=== PATIENT | male | born 1950 | race Caucasian/White ===

== ENCOUNTER 2016-07-15 | Emergency (ER) | payer MEDICARE, OTHER | END 2016-07-15 16:43 | disposition home or self-care (01) ==

== ENCOUNTER 2016-09-18 11:37 | Emergency (ER) | payer MEDICARE, OTHER | END 2016-09-18 12:56 | disposition home or self-care (01) | DX: J01.00 Acute maxillary sinusitis, unspecified (principal); I10 Essential (primary) hypertension; G47.30 Sleep apnea, unspecified; E11.9 Type 2 diabetes mellitus without complications; Z79.4 Long term (current) use of insulin; K21.9 Gastro-esophageal reflux disease without esophagitis; K75.9 Inflammatory liver disease, unspecified; Z87.442 Personal history of urinary calculi; M19.90 Unspecified osteoarthritis, unspecified site; M10.9 Gout, unspecified; Z87.891 Personal history of nicotine dependence ==

== ENCOUNTER 2017-04-27 11:08 | Outpatient (CLI) | payer MEDICARE, OTHER | END 2017-04-27 11:09 | disposition home or self-care (01) | LOC: SC 11:08 | PROVIDERS: ATTEND Internal Medicine Pulmonary Disease | DX: G47.33 Obstructive sleep apnea (adult) (pediatric) (principal) | CPT/HCPCS: 99213; G0463; 99212 ==

== ENCOUNTER 2018-03-17 09:51 | Outpatient (CLI) | payer MEDICARE, OTHER | END 2018-03-17 09:52 | disposition home or self-care (01) | LOC: SC 09:51 | PROVIDERS: ATTEND Nurse Practitioner Family | DX: G47.33 Obstructive sleep apnea (adult) (pediatric) (principal) | CPT/HCPCS: 99215; G0463; 99212 ==

== ENCOUNTER 2018-06-14 18:07 | Emergency (ER) | payer MEDICARE, OTHER ==
[2018-06-14 18:14] VITALS: BP 155/83
--- NOTE | 2018-06-14 18:29 | ED Physician Documentation ---
PD HPI UPPER EXT INJURY - Stated complaint Stated Complaint: R SHOULDER PX - Chief complaint Chief Complaint: Trauma Ext - History obtained from History obtained from: Patient - History of Present Illness Location: Right, Shoulder Type of injury: No: Fall, Twist Where injury occurred: Home Timing - onset: How many days ago (has had pain right shoulder the past 3 days, without injury. Pain lateral shoulder. Hurts with ROM, particularly abduction. He told about it today, and he says she was concerned about it being heart related and had him come for evaluation.) Timing - duration: Days Timing - details: Abrupt onset (awoke with it few days ago. Better with some use, but hurts with abduction and rotational movement. No chest pain.), Waxing and waning Worsened by: Moving, Palpating (lateral shoulder) Associated symptoms: No: Weakness, Numbness, Tingling Similar symptoms before: Has not had sx before Recently seen: Not recently seen Review of Systems Constitutional: denies: Fever Nose: denies: Rhinorrhea / runny nose, Congestion Throat: denies: Sore throat Cardiac: denies: Chest pain / pressure, Palpitations Respiratory: denies: Dyspnea, Cough GI: denies: Nausea, Vomiting Skin: denies: Rash, Lesions Musculoskeletal: denies: Neck pain, Back pain Neurologic: denies: Focal weakness, Numbness PD PAST MEDICAL HISTORY - Past Medical History Cardiovascular: Hypertension Respiratory: Sleep apnea Endocrine/Autoimmune: Type 2 diabetes GI: GERD, Hepatitis : Kidney stones HEENT: None Psych: Depression Musculoskeletal: Osteoarthritis, Gout, Chronic back pain Derm: Rosacea - Past Surgical History Past Surgical History: Yes General: Colonoscopy HEENT: Other Derm: Other - Present Medications Home Medications: Ambulatory Orders Medication Instructions Recorded Confirmed Allopurinol [Zyloprim] 300 mg PO ONCEDAILY 04/11/13 06/14/18 Insulin Glargine,Hum.rec.anlog 50 unit SQ DAILY 04/11/13 06/14/18 [Lantus] Lisinopril 10 mg PO DAILY 04/11/13 06/14/18 Metformin HCl [Glucophage] 1,000 mg PO DAILY 04/11/13 06/14/18 Simvastatin 20 mg PO DAILY 04/11/13 06/14/18 buPROPion [Wellbutrin Sr] 150 mg PO DAILY 04/11/13 06/14/18 Doxycycline Inj [Vibramycin Inj] 100 mg PO DAILY 11/19/13 06/14/18 Metoprolol Succinate 25 mg DAILY 07/15/16 06/14/18 raNITIdine HCl [Ranitidine HCl] 150 mg BID 07/15/16 06/14/18 Cetirizine HCl/Pseudoephedrine 1 each PO BID PRN #30 tab.er.12h 09/18/16 06/14/18 [Zyrtec-D Tablet] Mometasone Furoate [Nasonex] 2 sprays NS DAILY PRN #1 spray.pump 09/18/16 06/14/18 Aspirin Chewable [St Adriel 81 mg PO DAILY 06/14/18 06/14/18 Aspirin] Indomethacin PRN 06/14/18 Insulin Aspart [NovoLOG] PRN 06/14/18 - Allergies Allergies/Adverse Reactions: Allergies Allergy/AdvReac Type Severity Reaction Status Date / Time codeine Allergy Headache Verified 06/14/18 18:12 hydrocodone Allergy Itching Verified 06/14/18 18:12 - Social History Does the pt smoke?: No Smoking Status: Former smoker Does the pt drink ETOH?: Yes Does the pt have substance abuse?: No PD ED PE NORMAL - Vitals Vital signs reviewed: Yes - General General: Alert and oriented X 3, No acute distress, Well developed/nourished - Neck Neck: Supple, no meningeal sign, No adenopathy - Cardiac Cardiac: RRR, No murmur - Respiratory Respiratory: Clear bilaterally - Abdomen Abdomen: Normal bowel sounds, Soft, Non tender - Derm Derm: Normal color, Warm and dry - Extremities Extremities: Other (right shoulder tender laterally, inferior to the bursa. Pain with abduction against resistance. No redness nor deformity. ROtational movements cause some pain but are strong. No edema in arm. ) Results - Vitals Vitals: Vital Signs - 24 hr 06/14/18 18:08 Temperature 36.1 C L Heart Rate 82 Respiratory 16 Rate Blood Pressure 155/83 H O2 Saturation 98 Oxygen O2 Source Room air PD MEDICAL DECISION MAKING - ED course Complexity details: considered differential (clearly clinically muscular shoulder pain of rotator cuff. No suggestion of heart related. ), d/w patient Departure - Departure Disposition: Home, Self Care Clinical Impression: Right shoulder tendonitis Condition: Stable Record reviewed to determine appropriate education?: Yes Follow-Up: MONIKA KRISHNAMURTHY, DO [Primary Care Provider] - Comments: This sounds like some inflammation of the rotator cuff tendon. It does not sound torn or significantly injured. I would avoid heavy lifting, push pull, overhead reaching for several days to a week. Use some ibuprofen twice daily for the next 4-5 days. Recheck if not better over that timeframe. It does not sounds heart related. Discharge Date/Time: 06/14/18 19:01
== END 2018-06-14 19:01 | disposition home or self-care (01) ==
LOC: ED 18:07
DX: M75.91 Shoulder lesion, unspecified, right shoulder (principal); I10 Essential (primary) hypertension; E11.9 Type 2 diabetes mellitus without complications; Z79.4 Long term (current) use of insulin; Z79.82 Long term (current) use of aspirin; Z87.891 Personal history of nicotine dependence
CPT/HCPCS: 99282; 99283

== ENCOUNTER 2018-08-01 20:20 | Emergency (ER) | payer MEDICARE, OTHER ==
--- NOTE | 2018-08-01 21:16 | ED Physician Documentation ---
PD HPI BACK PAIN - Stated complaint Stated Complaint: BACK/LEG PX - Chief complaint Chief Complaint: Ext Problem - History obtained from History obtained from: Patient, Family () - History of Present Illness Timing - onset: How many months ago (one month or more) Timing - details: Still present Location: Lower, Right Quality: Pain Worsened by: Movement, Twisting Contributing factors: Twisting (stretching exercises) Recently seen: Clinic - Additional information Additional information: The patient is a 67-year-old male who presents with lower back pain radiating down his right leg. He has had symptoms for about one month, starting after he performed stretching exercises of his hips. He was seen at [facility] emergency department on July 14, and had ultrasound and x-rays done at that time. He was seen by his primary physician 2 weeks ago and was treated with prednisone and Flexeril. An outpatient MRI was ordered and is scheduled for August 05. He came to the emergency department tonight thinking he would be able to get an MRI emergently. He denies fever, urinary incontinence, numbness or weakness. Past medical history is significant for cervical spine disc herniation. Review of Systems Constitutional: denies: Fever Ears: denies: Tinnitus/ringing Nose: denies: Congestion Throat: denies: Sore throat Cardiac: denies: Chest pain / pressure Respiratory: denies: Dyspnea, Cough GI: denies: Abdominal Pain, Vomiting : denies: Dysuria, Incontinent Skin: denies: Rash Musculoskeletal: reports: Back pain. denies: Extremity swelling Neurologic: denies: Focal weakness, Numbness, Headache PD PAST MEDICAL HISTORY - Past Medical History Past Medical History: Yes Cardiovascular: Hypertension Respiratory: Sleep apnea Endocrine/Autoimmune: Type 2 diabetes GI: GERD, Hepatitis : Kidney stones HEENT: None Psych: Depression Musculoskeletal: Osteoarthritis, Gout, Chronic back pain Derm: Rosacea - Past Surgical History Past Surgical History: Yes General: Colonoscopy HEENT: Other Derm: Other - Present Medications Home Medications: Ambulatory Orders Medication Instructions Recorded Confirmed Allopurinol [Zyloprim] 300 mg PO ONCEDAILY 04/11/13 06/14/18 Insulin Glargine,Hum.rec.anlog 50 unit SQ DAILY 04/11/13 06/14/18 [Lantus] Lisinopril 10 mg PO DAILY 04/11/13 06/14/18 Metformin HCl [Glucophage] 1,000 mg PO DAILY 04/11/13 06/14/18 Simvastatin 20 mg PO DAILY 04/11/13 06/14/18 buPROPion [Wellbutrin Sr] 150 mg PO DAILY 04/11/13 06/14/18 Doxycycline Inj [Vibramycin Inj] 100 mg PO DAILY 11/19/13 06/14/18 Metoprolol Succinate 25 mg DAILY 07/15/16 06/14/18 raNITIdine HCl [Ranitidine HCl] 150 mg BID 07/15/16 06/14/18 Cetirizine HCl/Pseudoephedrine 1 each PO BID PRN #30 tab.er.12h 09/18/16 06/14/18 [Zyrtec-D Tablet] Mometasone Furoate [Nasonex] 2 sprays NS DAILY PRN #1 spray.pump 09/18/16 06/14/18 Aspirin Chewable [St Adriel 81 mg PO DAILY 06/14/18 06/14/18 Aspirin] Indomethacin PRN 06/14/18 Insulin Aspart [NovoLOG] PRN 06/14/18 oxyCODONE [Roxicodone] 5 mg PO Q6H PRN #20 tablet 08/01/18 - Allergies Allergies/Adverse Reactions: Allergies Allergy/AdvReac Type Severity Reaction Status Date / Time codeine Allergy Headache Verified 08/01/18 20:29 hydrocodone Allergy Itching Verified 08/01/18 20:29 - Social History Does the pt smoke?: No Smoking Status: Never smoker Does the pt drink ETOH?: Yes Does the pt have substance abuse?: No - Immunizations Immunizations are current?: No Immunizations: TDAP >10years/unknown - POLST Patient has POLST: No PD ED PE NORMAL - Vitals Vital signs reviewed: Yes (Systolic hypertension.) - General General: Alert and oriented X 3, Well developed/nourished, Other (Standing at the bedside, preferring standing to sitting or lying.) - HEENT HEENT: Atraumatic - Neck Neck: No bony TTP - Cardiac Cardiac: RRR - Respiratory Respiratory: No respiratory distress, Clear bilaterally - Abdomen Abdomen: Soft, Non tender, Other (Rotund abdomen.) - Back Back: No CVA TTP, No spinal TTP, Other (There is tenderness to palpation over the right sacroiliac region. No tenderness to palpation over the spinous processes.) - Derm Derm: No rash - Extremities Extremities: No edema, No calf tenderness / cord, Other (Straight leg raise test is positive on the right at 20 elevation; negative on the left.) - Neuro Neuro: Alert and oriented X 3, No motor deficit, No sensory deficit, Other (Deep tendon reflexes are 2+ and equal bilaterally at the patellar and Achilles tendons.) Results - Vitals Vitals: Oxygen O2 Source Room air PD MEDICAL DECISION MAKING - ED course Complexity details: reviewed old records, considered differential, d/w patient, d/w family ED course: The patient's presentation is most consistent with low back pain with right- sided sciatica. There is no neurologic deficit detected. His presentation does not suggest epidural abscess, cauda equina syndrome, or spinal stenosis. Charlee tment in the emergency department included administration of oxycodone 5 mg orally. I discussed with him and his that an MRI cannot be obtained emergently. I advised that they follow-up for the MRI that is already scheduled for August 05. I discussed with them potentially worrisome signs or symptoms that should prompt reevaluation in the emergency department. He is being discharged with prescription for oxycodone, 20 tablets. Departure - Departure Disposition: Home, Self Care Clinical Impression: Low back pain with right-sided sciatica Qualifiers: Chronicity: unspecified Back pain laterality: right Qualified Code(s): M54.41 - Lumbago with sciatica, right side Condition: Stable Instructions: ED Sciatica Follow-Up: MONIKA KRISHNAMURTHY DO [Primary Care Provider] - Prescriptions: oxyCODONE [Roxicodone] 5 mg PO Q6H PRN #20 tablet PRN Reason: Pain Comments: Apply ice pack to your lower back intermittently. Continue to use ibuprofen up to 800 mg 3 times daily for its anti-inflammatory effect. You can continue to use Flexeril as previously prescribed, for muscle spasms. You can use oxycodone as prescribed if needed for pain. Follow-up for MRI on , the , as scheduled. Follow-up with your primary physician within 2 weeks. Call to schedule appointment. Return to the emergency department if you develop increasing pain, fever, urinary incontinence, or otherwise worsening symptoms. Discharge Date/Time: 08/01/18 21:24
[2018-08-01] MEDS ORDERED: oxyCODONE 5 MG TABLET PO STA (21:17)
[2018-08-01 21:24] VITALS: BP 147/85
== END 2018-08-01 21:24 | disposition home or self-care (01) ==
LOC: ED 20:20
DX: M54.41 Lumbago with sciatica, right side (principal); I10 Essential (primary) hypertension; E11.9 Type 2 diabetes mellitus without complications; Z79.4 Long term (current) use of insulin; Z79.82 Long term (current) use of aspirin
CPT/HCPCS: 99283; A9270

== ENCOUNTER 2019-11-30 14:49 | Outpatient (CLI) | payer MEDICARE, OTHER ==
--- NOTE | 2019-11-30 15:51 | SLEEP CARE CONSULTATION ---
Information from patient questionnaire entered by Carly Estrada. I have reviewed and concur with the information entered by Carly Estrada. This document represents the service I personally performed and the decisions made by me, Mira Tapia, RN, MSN, ANALYTICAL LABORATORY TECHNICIAN. History of Present Illness Service Date and Time: 11/30/2019 1449 Previous diagnosis: Severe, Obstructive Sleep Apnea-Hypopnea Syndrome AHI: 48.2 (in 2016) Reason for follow up: annual Equipment type: BiPAP Equipment obtained from: [employer] (getting supplies as needed) Mask style: Nasal pillows Backup mask available: Yes (old mask ) Last cushion change: about 2 weeks ago Prior sleep studies: Yes Year and Where: 2006, 2012, and 2016 - [facility] Type of Sleep Study: Polysomnography CPAP Compliance Data - Data Reviewed with Patient Average duration of nightly device use: 8.7 Compliance rate %: 99.4 (180 days) Current pressure setting (cmH2O): 15/8 Humidity settin Heated hose settin Average residual AHI: 1.1 Average large leak: 15 sec Subjective Patient concerns: reports: nasal congestion (chronic/ ENT evaluation/ allergy medications has reduced symptoms but intermittently increased post nasal drainage. ), dry mouth, nose, throat (intermittent severe dry mouth - 1-2 times a week). denies: aerophagia, mask discomfort, air blowing in eyes, mask leak noise, condensation in mask/hose, epistaxis, other Observed to snore while using device: No Current pressure setting perceived as: comfortable On therapy, patient: reports: sleeping better, awakening more refreshed, being more awake and alert during the day, more rested overall. denies: drowsiness while driving Initial [place] Sleepiness Scale score: 6 (in 2005) Current [place] Sleepiness Scale score: 0 Allergies and Home Medications Known drug allergies: Yes (see list) Home medication list reviewed: No (no changes ) Review of Systems Review of systems same as previous: Yes Physical Exam Blood Pressure: 154/78 Cuff size: long Heart Rate: 98 O2 Saturation: 66 Height: 5 ft 10 in Weight: 240 lb Body Mass Index: 34.4 BMI Classification: Obese Impression and Plan 1. Obstructive Sleep Apnea-Hypopnea Syndrome, severe, with good treatment compliance and good apnea control. On BiPAP therapy, the patient has better sleep quality and is more rested overall. For severe intermittent oral dryness, he is advised to lower the heated hose as his humidity is at maximum. Chronic oral dryness can contribute to dental caries so advised to check with dentist an oral dryness product and to follow up if not seen in a while. Nasal congestion can be reduced as well with changing his shower to night before bed will often assist nasal drainage. Saline nasal spray sample was also given to use prior to CPAP to clear nasal secretions and wash off any nasal allergens to facilitate nasal breathing. He is also to use his Flonase after using saline nasal spray for better medication adherence. He is to try this method for 2-4 weeks to see if reduced post nasal drainage. He is advised to use PAP with nap if aware he is sleepy mid day. Weight Patient has gained weight. Currently patients BMI is 34.4 obesity class . Obesity increases the risk of apnea, CPAP pressure requirements and overall health risks especially cardiovascular and diabetes. Patient encouraged to disc uss their weight loss goals with their PCP and consider a referral to a residential roofer helper. The patient's CPAP pressure range should accommodate some weight loss. Symptoms to report for additional pressure adjustment discussed. Patient's apnea severity and rationale for treatment to reduce apnea, improve sleep quality and reduce cardiovascular and cerebrovascular events was reviewed. I also reviewed the benefit of consistent device use of CPAP for hypertension. * Continue BiPAP pressure at 15/8 cmH2O * Implement methods to reduce nasal congestion and post nasal drainage * Notify me if snoring with mask or feeling that the pressure is too much or too little * Attempt to lose weight * Call this office if any problems using CPAP * Return for follow up in 1 year , or sooner if concerns arise Visit Type: In Office Time Spent with Patient (minutes): 35 Provider Statement: I spent 100% of the Face to Face Visit with the patient with greater than 50% spent counseling the patient and coordination of care.
[2019-11-30 15:52] VITALS: BP 154/78
== END 2019-11-30 14:50 | disposition home or self-care (01) ==
LOC: SC 14:49
PROVIDERS: ATTEND Nurse Practitioner Family
DX: G47.33 Obstructive sleep apnea (adult) (pediatric) (principal); E66.9 Obesity, unspecified; Z68.34 Body mass index [BMI] 34.0-34.9, adult
CPT/HCPCS: 99214; G0463; 99212

== ENCOUNTER 2020-11-16 23:06 | Emergency (ER) | payer MEDICARE, OTHER ==
[2020-11-17 00:43] LABS: BASOPHILS % (AUTO) 0.6 %; EOSINOPHILS # (AUTO) 0.2 10^3/uL (0.0-0.7); EOSINOPHILS % (AUTO) 3.2 %; HCT - HEMATOCRIT 38.8 % (42.0-52.0); HGB - HEMOGLOBIN 12.7 g/dL (14.0-18.0); LYMPHOCYTES # (AUTO) 2.7 10^3/uL (1.5-3.5); MEAN CORPUSCULAR HEMOGLOBIN 30.3 pg (27.0-31.0); MEAN CORPUSCULAR HGB CONC 32.7 g/dL (32.0-36.0); MEAN CORPUSCULAR VOLUME 92.6 fL (80.0-94.0); MEAN PLATELET VOLUME 10.5 fL (7.4-11.4); MONOCYTES # (AUTO) 0.5 10^3/uL (0.0-1.0); MONOCYTES % (AUTO) 7.5 %; NEUTROPHILS # (AUTO) 2.8 10^3/uL (1.5-6.6); NEUTROPHILS % (AUTO) 45.5 %; PLT - PLATELET COUNT 144 10^3/uL (130-450); RED BLOOD COUNT 4.19 10^6/uL (4.70-6.10); RED CELL DISTRIBUTION WIDTH 14.6 % (12.0-15.0); WHITE BLOOD COUNT 6.2 x10^3/uL (4.8-10.8)
[2020-11-17 00:57] LABS: ALBUMIN 3.9 g/dL (3.2-5.5); ALBUMIN/GLOBULIN RATIO 1.3 (1.0-2.2); BILIRUBIN,TOTAL 0.8 mg/dL (0.2-1.0); CALCIUM 9.6 mg/dL (8.5-10.3); CREATININE 1.5 mg/dL (0.6-1.2); POTASSIUM 4.3 mmol/L (3.5-5.0); TOTAL PROTEIN 6.9 g/dL (6.7-8.2)
[2020-11-17 01:08] LABS: BILIRUBIN,URINE NEGATIVE (NEGATIVE); GLUCOSE, URINE (UA) NEGATIVE (NEGATIVE); KETONES,URINE (UA) NEGATIVE (NEGATIVE); LEUKOCYTE ESTERASE, URINE NEGATIVE (NEGATIVE); NITRITE,URINE NEGATIVE (NEGATIVE); OCCULT BLOOD,URINE NEGATIVE (NEGATIVE); PROTEIN,URINE NEGATIVE (NEGATIVE); UROBILINOGEN,URINE 0.2 (NORMAL) E.U./dL (NORMAL)
[2020-11-17 01:10] LABS: CLARITY,URINE CLEAR (CLEAR)
--- NOTE | 2020-11-17 01:12 | ED Physician Documentation ---
PD HPI ABD PAIN - Stated complaint Stated Complaint: LRQ PX - Chief complaint Chief Complaint: Abd Pain - History obtained from History obtained from: Patient - History of Present Illness Timing - onset: How many days ago (4) Timing - duration: Days (4) Timing - details: Gradual onset, Still present, Waxing and waning Quality: Cramping, Aching, Pain Location: RLQ Radiation: No: Chest, Lower back, Right flank Associated symptoms: Constipation. No: Fever, Nausea, Vomiting, Diarrhea Similar symptoms before: Has not had sx before Recently seen: Not recently seen Review of Systems Constitutional: denies: Fever, Chills Nose: denies: Rhinorrhea / runny nose, Congestion Throat: denies: Sore throat : denies: Dysuria Skin: denies: Rash, Lesions Musculoskeletal: denies: Back pain Neurologic: denies: Focal weakness, Numbness PD PAST MEDICAL HISTORY - Past Medical History Past Medical History: Yes Cardiovascular: Hypertension Respiratory: Sleep apnea Endocrine/Autoimmune: Type 2 diabetes GI: GERD, Hepatitis : Kidney stones HEENT: None Psych: Depression Musculoskeletal: Osteoarthritis, Gout, Chronic back pain Derm: Rosacea - Past Surgical History Past Surgical History: Yes General: Colonoscopy HEENT: Other Derm: Other - Present Medications Home Medications: Ambulatory Orders Medication Instructions Recorded Confirmed Allopurinol [Zyloprim] 300 mg PO ONCEDAILY 04/11/13 06/14/18 Insulin Glargine,Hum.rec.anlog 50 unit SQ BID 04/11/13 06/14/18 [Lantus] Lisinopril 10 mg PO DAILY 04/11/13 06/14/18 Metformin HCl [Glucophage] 1,000 mg PO DAILY 04/11/13 06/14/18 Simvastatin 20 mg PO DAILY 04/11/13 06/14/18 buPROPion [Wellbutrin Sr] 150 mg PO DAILY 04/11/13 06/14/18 Doxycycline Inj [Vibramycin Inj] 100 mg PO DAILY 11/19/13 06/14/18 Metoprolol Succinate 25 mg DAILY 07/15/16 06/14/18 Mometasone Furoate [Nasonex] 2 sprays NS DAILY PRN #1 spray.pump 09/18/16 06/14/18 Indomethacin PRN 06/14/18 Insulin Aspart [NovoLOG] PRN 06/14/18 Docusate Sodium 100Mg Capsule 100 mg PO DAILY #20 cap 11/17/20 [Colace 100Mg Capsule] polyethylene glycoL 3350 [Miralax] 17 gm PO DAILY PRN #1 bottle 11/17/20 - Allergies Allergies/Adverse Reactions: Allergies Allergy/AdvReac Type Severity Reaction Status Date / Time codeine Allergy Headache Verified 11/16/20 23:19 hydrocodone Allergy Itching Verified 11/16/20 23:19 - Social History Does the pt smoke?: No Smoking Status: Never smoker Does the pt drink ETOH?: No Does the pt have substance abuse?: No - Immunizations Immunizations are current?: No Immunizations: TDAP >10years/unknown - POLST Patient has POLST: No PD ED PE NORMAL - Vitals Vital signs reviewed: Yes - General General: Alert and oriented X 3, No acute distress, Well developed/nourished - Neck Neck: Supple, no meningeal sign, No adenopathy - Cardiac Cardiac: RRR, No murmur - Respiratory Respiratory: Clear bilaterally - Abdomen Abdomen: Normal bowel sounds, Soft, Non distended, No organomegaly, Other (tender right lower and mid abd without percussion, rebound, nor guarding t enderness. ) - Back Back: No CVA TTP - Derm Derm: Normal color, Warm and dry - Extremities Extremities: No edema, No calf tenderness / cord - Neuro Neuro: Alert and oriented X 3, No motor deficit, Normal speech Results - Vitals Vitals: Oxygen O2 Source Room air - Labs Labs: Laboratory Tests 11/16/20 11/17/20 11/17/20 22:40 00:40 00:40 WBC 6.2 RBC 4.19 L Hgb 12.7 L Hct 38.8 L MCV 92.6 MCH 30.3 MCHC 32.7 RDW 14.6 Plt Count 144 MPV 10.5 Neut # (Auto) 2.8 Lymph # (Auto) 2.7 [place] # (Auto) 0.5 Eos # (Auto) 0.2 Baso # (Auto) 0.0 Absolute Nucleated RBC 0.00 Nucleated RBC % 0.0 Sodium 141 Potassium 4.3 Chloride 105 Carbon Dioxide 24 Anion Gap 12.0 BUN 38 H Creatinine 1.5 H Estimated GFR (MDRD) 46 L Glucose 133 H Calcium 9.6 Total Bilirubin 0.8 AST 30 ALT 31 Alkaline Phosphatase 67 Total Protein 6.9 Albumin 3.9 Globulin 3.0 Albumin/Globulin Ratio 1.3 Lipase 30 Urine Color YELLOW Urine Clarity CLEAR Urine pH 7.0 Ur Specific [place] 1.015 Urine Protein NEGATIVE Urine Glucose (UA) NEGATIVE Urine Ketones NEGATIVE Urine Occult Blood NEGATIVE Urine Nitrite NEGATIVE Urine Bilirubin NEGATIVE Urine Urobilinogen 0.2 (NORMAL) Ur Leukocyte Esterase NEGATIVE Ur Microscopic Review NOT INDICATED Urine Culture Comments NOT INDICATED - Rads (name of study) abd CT Radiology: Prelim report reviewed (normal appendix, no kidney stones; large fecal burden. ), See rad report PD MEDICAL DECISION MAKING - ED course Complexity details: reviewed old records, reviewed results (no acute process. large fecal burden. ), d/w patient Departure - Departure Disposition: 01 Home, Self Care Clinical Impression: Right lower quadrant abdominal pain, Constipation, Renal cyst Clinical Impression: (Ruled Out): Appendicitis Condition: Stable Record reviewed to determine appropriate education?: Yes Instructions: ED Abdominal Pain Unkn Cause, ED Constipation Follow-Up: MONIKA KRISHNAMURTHY DO [Primary Care Provider] - Prescriptions: Docusate Sodium 100Mg Capsule [Colace 100Mg Capsule] 100 mg PO DAILY #20 cap polyethylene glycoL 3350 [Miralax] 17 gm PO DAILY PRN #1 bottle PRN Reason: Constipation Comments: Creatinine measure of kidney function was 1.5 which is slightly above normal. Be sure to stay well-hydrated. Your CT scan did not show any acute process. You have a normal appendix. No kidney stones. No signs of diverticulitis or tumors. The report did comment on a large stool burden (constipation) and this may be causing some stretching and cramping pain of the intestines. For this I would suggest staying well-hydrated and using fiber such as Metamucil as well as a stool softener such as docusate daily. Also use MiraLAX stool softener 1 capful in water every 2-3 hours for the next day or 2 until you are having good soft stool movements. Do not overuse it as we do not really want to cleanse you out per se but just until soft stools. You do have a incidentally found cyst on the right kidney that has been present since at least [address] of the abdomen. It is slightly larger now than it was then but not very much. This can be followed up if needed at intervals of a year or 2 by ultrasound. This should not be what is causing your pain. Discharge Date/Time: 11/17/20 05:22
[2020-11-17] MEDS ORDERED: HYDROmorphone 1 MG/ML CARPUJECT IVP STA (01:57)
[2020-11-17] MEDS ORDERED: KETOROLAC 15 MG/ML VIAL IVP STA (01:57)
[2020-11-17] MEDS ORDERED: SODIUM CHLORIDE 0.9% 1,000 ML IV STA (01:58)
[2020-11-17] MEDS ORDERED: IOVERSOL 320 100 ML VIAL IVP ONE ×2 (02:45→03:21)
[2020-11-17] MEDS ORDERED: ONDANSETRON 4 MG/2 ML VIAL IVP STA (03:18)
[2020-11-17] MEDS ORDERED: DOCUSATE SODIUM 100 MG CAPSULE PO STA (04:52)
[2020-11-17] MEDS ORDERED: SENNA 8.6 MG TABLET PO STA (04:52)
[2020-11-17 05:27] VITALS: BP 137/76
--- NOTE | 2020-11-17 08:12 | CT Report ---
PROCEDURE: Abdomen/Pelvis W INDICATIONS: rlq pain for 4 days CONTRAST: IV CONTRAST: Optiray 320 ml: 100 PO CONTRAST: *NO PO CONTRAST TECHNIQUE: After the administration of intravenous contrast, 5 mm thick sections acquired from the diaphragms to the symphysis. 5 mm thick coronal and sagittal reformats were acquired. For radiation dose reducti on, the following was used: automated exposure control, adjustment of mA and/or kV according to anjel ent size. COMPARISON: None. FINDINGS: Image quality: Excellent. ABDOMEN: Lung bases: Lung bases are clear. Heart size is normal. Solid organs: The left lobe of the liver is somewhat prominent. No focal suspicious liver masses. Spl een is normal in size. The 3.3 cm low-density lesion near the dome of the liver in segment 8 may repr esent a cyst. Gallbladder is unremarkable. Biliary system is non dilated. Pancreas enhances normal ly. No adrenal nodules. Kidneys demonstrate normal size and enhancement, without hydronephrosis. M ultiple bilateral renal cysts, including an exophytic right renal cyst that measures 7.3 cm. Peritoneum and bowel: Bowel loops demonstrate normal wall thickness and caliber. No free fluid or a ir. Normal appendix. Moderately large fecal debris throughout the colon. Nodes and vessels: No retroperitoneal or mesenteric adenopathy by size criteria. Aorta and inferior vena cava are normal in size. Miscellaneous: No ventral hernias. PELVIS: Genitourinary: Bladder wall thickness is normal. Miscellaneous: Small bilateral fat-containing inguinal hernias. Bones: No suspicious bony lesions. No vertebral body compression fractures. Degenerative spine with canal stenosis at L3-L4 and L4-L5. IMPRESSION: 1. Large fecal load 2. Normal appendix. 3. Incidental note made of lumbar canal stenosis. 4. No evidence acute abdominal process. A preliminary report with the above findings was provided at the time of the study by [employer]. Reviewed by: Chaitanya Morel MD on 11/17/2020 7:10 AM [facility] Approved by: Chaitanya Morel MD on 11/17/2020 7:10 AM [facility] Station ID: [id number]
== END 2020-11-17 05:22 | disposition home or self-care (01) ==
LOC: ED 23:06
DX: K59.00 Constipation, unspecified (principal); N28.1 Cyst of kidney, acquired; I10 Essential (primary) hypertension; E11.9 Type 2 diabetes mellitus without complications; Z79.4 Long term (current) use of insulin
CPT/HCPCS: 36415; 51798; 74177; 80053; 81003; 83690; 85025; 96374; 96375; 99284; A9270; J1170; Q9967; 81001; 87086

== ENCOUNTER 2020-11-27 11:18 | Outpatient (CLI) | payer MEDICARE, OTHER ==
--- NOTE | 2020-11-27 12:34 | SLEEP CARE CONSULTATION ---
Information from patient questionnaire entered by Carly Estrada. I have reviewed and concur with the information entered by Carly Estrada. This document represents the service I personally performed and the decisions made by , Cecily Goodwin ARNP. History of Present Illness Service Date and Time: 11/27/2020 1118 Previous diagnosis: Severe, Obstructive Sleep Apnea-Hypopnea Syndrome AHI: 48.2 (in 2015) Reason for follow up: annual (last seen 11/2019) Equipment type: BiPAP Equipment obtained from: [employer] (getting supplies as needed) Mask style: Nasal pillows Backup mask available: Yes (old mask) Last cushion change: 5 days ago Prior sleep studies: Yes Year and Where: 2015, 2012, and 2006 - [facility] Type of Sleep Study: Polysomnography HPI additional information: DOTTIE VALENTIN was diagnosed to have severe, AHI 48.2, obstructive sleep apnea- hypopnea syndrome and return via Telehealth visit today for BIPAP therapy annual follow-up. CPAP Compliance Data - Data Reviewed with Patient Average duration of nightly device use: 8 hr 34 min Compliance rate %: 98.3 (180 days) Current pressure setting (cmH2O): 15/8 Humidity settin Heated hose settin Average residual AHI: 1.4 Average large leak: 2 min 9 sec Subjective Patient concerns: reports: mask leak noise (occasional, adjustment resolves this), dry mouth, nose, throat (occasional, if oral vents a little), other (door of machine is blowing open). denies: aerophagia, mask discomfort, air blowing in eyes, condensation in mask/hose, nasal congestion, epistaxis Observed to snore while using device: No Current pressure setting perceived as: comfortable On therapy, patient: reports: sleeping better, awakening more refreshed, being more awake and alert during the day, more rested overall, other (can't sleep without it). denies: drowsiness while driving Initial [place] Sleepiness Scale score: 6 (in 2005) Current [place] Sleepiness Scale score: 0 Allergies and Home Medications Home medication list reviewed: Yes (no new meds) Review of Systems Review of systems same as previous: Yes (no changes) Physical Exam Vital signs obtained and entered by: Telehealth visit to reduce exposure during Covid pandemic Height: 5 ft 10 in Impression and Plan 1. Obstructive Sleep Apnea-Hypopnea Syndrome, severe, with good treatment compliance and good apnea control. On BIPAP therapy, the patient has better sleep quality and is more rested overall. Patient is satisfied with his janki tment and states he can't sleep without his BIPAP device. He states last night his machine developed an issue with blowing the door open that kept waking him up every 30-60 minutes. The patients BIPAP is over 5 years old and of reasonable use. In addition, it's door will not stay closed and will stop providing pressure, a sign of malfunction. Patient states the device no longer meets his needs and he needs to update his machine. Thus, the BIPAP will be updated. A DWO prescription will be made. Compliance guidelines for new device and follow up discussed. I informed patient of current [employer] recall. I encouraged him to go on to their website and register his machine. He has not noticed any particles in his machine but will check this tonight. He does use a so clean machine we will continue to try to replace his machine since he is due this year in February and it is currently malfunctioning due to the door not staying closed. I will follow up with him 1 month after he receives his new device. Patient voiced understanding and agreement with this plan of care. Patient's apnea severity and rationale for treatment to reduce apnea, improve sleep quality and reduce cardiovascular and cerebrovascular events was reviewed. I also reviewed the benefit of consistent device use of BIPAP for hypertension. Patient also advised to try to lose weight by making better food choices and increasing activity. He voiced understanding. * Continue BIPAP pressure at 15/8 cmH2O * Update machine * Notify me if snoring with mask or feeling that the pressure is too much or too little * Attempt to lose weight * Call this office if any problems using BIPAP * Return for follow up one month after, or sooner if concerns arise Counseling Topics: Spare mask, Weight loss health impact Visit Type: Telehealth Video Video Type: VSee Patient Location: Home Location of Provider: Office Patient agrees and consents to this telehealth visit type: Yes Patient agrees to have their insurance billed: Yes Time Spent with Patient (minutes): 21 Provider Statement: I spent 100% of the Telehealth Video Call with the patient with greater than 50% spent counseling the patient and coordination of care.
== END 2020-11-27 11:19 | disposition home or self-care (01) ==
LOC: SC 11:18
PROVIDERS: ATTEND Nurse Practitioner Family
DX: G47.33 Obstructive sleep apnea (adult) (pediatric) (principal)

== ENCOUNTER 2020-12-08 17:55 | Emergency (ER) | payer MEDICARE, OTHER ==
[2020-12-08 18:19] VITALS: BP 161/70
--- NOTE | 2020-12-08 19:13 | XRAY Report ---
PROCEDURE: Shoulder 3 View RT INDICATIONS: Pain TECHNIQUE: 3 views of the shoulder were acquired. COMPARISON: None. FINDINGS: Bones: No fractures or dislocations. No suspicious bony lesions. Visualized ribs appear intact. D egenerative changes are seen, with mild subacromial spurring and moderate glenohumeral joint space na rrowing. Soft tissues: No suspicious soft tissue calcifications. The visualized lung demonstrates a normal a ppearance. IMPRESSION: Age-appropriate degenerative changes are seen, without acute fracture identified. If it would be helpful for clinical management decision making, please consider a dedicated, schedule d shoulder MRI for further evaluation (assuming that there is no contraindication). Reviewed by: Sawyer Champagne MD on 12/08/2020 6:12 PM TYS[facility] Approved by: Sawyer Champagne MD on 12/08/2020 6:12 PM TYS[facility] Station ID: [id number]
[2020-12-08] MEDS ORDERED: oxyCODONE/ACET 5/325 Prepack 4 PO STA (19:26)
--- NOTE | 2020-12-08 19:38 | ED Physician Documentation ---
History of Present Illness - Stated complaint Stated Complaint: RIGHT SHOULDER PX - Chief complaint Chief Complaint: Ext Problem - History obtained from History obtained from: Patient - Additonal information Additional information: 70-year-old man presented with sudden onset pain today lifting a 60 pound piece of concrete and wrenching his right shoulder. Sudden onset pain, constant, worse with range of motion, aching, intermittently sharp, without radiation. Denies numbness or weakness in the extremity. No other injuries. Review of Systems Skin: denies: Lesions, Abrasion (s), Laceration (s) Musculoskeletal: reports: Extremity pain, Joint pain Neurologic: denies: Focal weakness, Numbness PD PAST MEDICAL HISTORY - Past Medical History Cardiovascular: Hypertension Respiratory: Sleep apnea Endocrine/Autoimmune: Type 2 diabetes GI: GERD, Hepatitis : Kidney stones HEENT: None Psych: Depression Musculoskeletal: Osteoarthritis, Gout, Chronic back pain Derm: Rosacea - Past Surgical History Past Surgical History: Yes General: Colonoscopy HEENT: Other Derm: Other - Present Medications Home Medications: Ambulatory Orders Medication Instructions Recorded Confirmed Allopurinol [Zyloprim] 300 mg PO ONCEDAILY 04/11/13 06/14/18 Insulin Glargine,Hum.rec.anlog 50 unit SQ BID 04/11/13 06/14/18 [Lantus] Lisinopril 10 mg PO DAILY 04/11/13 06/14/18 Metformin HCl [Glucophage] 1,000 mg PO DAILY 04/11/13 06/14/18 Simvastatin 20 mg PO DAILY 04/11/13 06/14/18 buPROPion [Wellbutrin Sr] 150 mg PO DAILY 04/11/13 06/14/18 Doxycycline Inj [Vibramycin Inj] 100 mg PO DAILY 11/19/13 06/14/18 Metoprolol Succinate 25 mg DAILY 07/15/16 06/14/18 Mometasone Furoate [Nasonex] 2 sprays NS DAILY PRN #1 spray.pump 09/18/16 06/14/18 Indomethacin PRN 06/14/18 Insulin Aspart [NovoLOG] PRN 06/14/18 Docusate Sodium 100Mg Capsule 100 mg PO DAILY #20 cap 11/17/20 [Colace 100Mg Capsule] polyethylene glycoL 3350 [Miralax] 17 gm PO DAILY PRN #1 bottle 11/17/20 - Allergies Allergies/Adverse Reactions: Allergies Allergy/AdvReac Type Severity Reaction Status Date / Time codeine Allergy Headache Verified 12/08/20 18:18 hydrocodone Allergy Itching Verified 12/08/20 18:18 - Social History Does the pt smoke?: No Smoking Status: Never smoker Does the pt drink ETOH?: No Does the pt have substance abuse?: No - Immunizations Immunizations are current?: No Immunizations: TDAP >10years/unknown - POLST Patient has POLST: No PD ED PE NORMAL - Vitals Vital signs reviewed: Yes - General General: Alert and oriented X 3, No acute distress, Well developed/nourished - HEENT HEENT: Atraumatic, PERRL, EOMI - Neck Neck: Supple, no meningeal sign - Extremities Extremities: No deformity, Other (2+ bilateral radial pulses, sensation, capillary refill, strength. Right shoulder nontender with passive range of motion but tender with active range of motion.) - Neuro Neuro: No motor deficit, No sensory deficit - Psych Psych: Normal mood, Normal affect Results - Vitals Vitals: Vital Signs - 24 hr 12/08/20 18:13 Temperature 36.2 C L Heart Rate 68 Respiratory 16 Rate Blood Pressure 161/70 H O2 Saturation 98 Oxygen O2 Source Room air PD MEDICAL DECISION MAKING - ED course ED course: 70-year-old man presented with right shoulder pain after lifting a bag of concrete today. He does not have a fracture dislocation on x-ray and has good range of motion. I advised him that he probably has a mild rotator cuff injury and should follow-up with orthopedics. Sling and pain medication provided. Return precautions given. Departure - Departure Disposition: 01 Home, Self Care Clinical Impression: Rotator cuff injury Condition: Good Instructions: Rotator Cuff Injury Follow-Up: Aaron Vazquez MD [Provider Admit Priv/Credential] - Comments: You are seen in the emergency department for rotator cuff injury. Apply ice for 20 minutes every hour for the next 48 hours at least. You do gentle range of motion exercises but for the most part I would like you to keep it at rest for the first 12 hours. Make sure that you start to do range of motion after that time to prevent frozen shoulder. Follow-up with Dr. Vazquez an orthopedist. Return to the emergency department if you have any new or worsening symptoms or other concerns.
== END 2020-12-08 19:40 | disposition home or self-care (01) ==
LOC: ED 17:55
DX: S46.001A Unspecified injury of muscle(s) and tendon(s) of the rotator cuff of right shoulder, initial encounter (principal); X50.0XXA Overexertion from strenuous movement or load, initial encounter
CPT/HCPCS: 99282; 99283

== ENCOUNTER 2020-12-26 09:53 | Emergency (ER) | payer MEDICARE, OTHER ==
--- NOTE | 2020-12-26 10:49 | ED Physician Documentation ---
PD HPI BACK PAIN - Stated complaint Stated Complaint: BACK PX - Chief complaint Chief Complaint: Back Pain - History obtained from History obtained from: Patient - History of Present Illness Timing - onset: How many days ago (3) Timing - duration: Days (3) Timing - details: Gradual onset, Still present Location: Lower, Right (at SI area wtih pain radiating down back of thigh.) Quality: Pain, Spasm, Aching Associated symptoms: No: Fever, Weakness, Numbness Worsened by: Movement, Palpation Contributing factors: Lifting (was doing some yardwork and crawling in storage area.), Twisting, Out of meds Similar symptoms before: Diagnosis (has hjad episodic low back pain (not chronic). Prior disc injection several years ago. but this is worse to the right.) Recently seen: Not recently seen Review of Systems Constitutional: denies: Fever, Chills Nose: denies: Rhinorrhea / runny nose, Congestion Throat: denies: Sore throat Respiratory: denies: Cough GI: reports: Nausea. denies: Vomiting : denies: Dysuria, Hematuria Skin: denies: Rash, Lesions Neurologic: denies: Focal weakness, Numbness PD PAST MEDICAL HISTORY - Past Medical History Cardiovascular: Hypertension Respiratory: Sleep apnea Endocrine/Autoimmune: Type 2 diabetes GI: GERD, Hepatitis : Kidney stones HEENT: None Psych: Depression Musculoskeletal: Osteoarthritis, Gout, Chronic back pain Derm: Rosacea - Past Surgical History Past Surgical History: Yes General: Colonoscopy HEENT: Other Derm: Other - Present Medications Home Medications: Ambulatory Orders Medication Instructions Recorded Confirmed Allopurinol [Zyloprim] 300 mg PO ONCEDAILY 04/11/13 06/14/18 Insulin Glargine,Hum.rec.anlog 50 unit SQ BID 04/11/13 06/14/18 [Lantus] Lisinopril 10 mg PO DAILY 04/11/13 06/14/18 Metformin HCl [Glucophage] 1,000 mg PO DAILY 04/11/13 06/14/18 Simvastatin 20 mg PO DAILY 04/11/13 06/14/18 buPROPion [Wellbutrin Sr] 150 mg PO DAILY 04/11/13 06/14/18 Doxycycline Inj [Vibramycin Inj] 100 mg PO DAILY 11/19/13 06/14/18 Metoprolol Succinate 25 mg DAILY 07/15/16 06/14/18 Mometasone Furoate [Nasonex] 2 sprays NS DAILY PRN #1 spray.pump 09/18/1605/19 Indomethacin PRN 06/14/18 Insulin Aspart [NovoLOG] PRN 06/14/18 Docusate Sodium 100Mg Capsule 100 mg PO DAILY #20 cap 11/17/20 [Colace 100Mg Capsule] polyethylene glycoL 3350 [Miralax] 17 gm PO DAILY PRN #1 bottle 11/17/20 Ondansetron Odt [Zofran] 4 mg TL Q6H PRN #12 tablet 12/26/20 oxyCODONE [Roxicodone] 5 mg PO Q4-6H PRN #12 tablet 12/26/20 tiZANidine [Zanaflex] 4 mg PO Q8H PRN #25 tablet 12/26/20 - Allergies Allergies/Adverse Reactions: Allergies Allergy/AdvReac Type Severity Reaction Status Date / Time codeine Allergy Headache Verified 12/26/20 10:23 hydrocodone Allergy Itching Verified 12/26/20 10:23 - Social History Does the pt smoke?: No Smoking Status: Never smoker Does the pt drink ETOH?: No Does the pt have substance abuse?: No - Immunizations Immunizations are current?: No Immunizations: TDAP >10years/unknown - POLST Patient has POLST: No PD ED PE NORMAL - Vitals Vital signs reviewed: Yes - General General: Alert and oriented X 3, Well developed/nourished, Other (appears very uncomfortable, guarding ROM of the right low back. Grimacing in pain. ) - Cardiac Cardiac: RRR, No murmur - Respiratory Respiratory: Clear bilaterally - Abdomen Abdomen: Soft, Non tender - Back Back: No CVA TTP, No spinal TTP (actually not tender midline. Has tenderness right upper SI area. No rash nor sores. ) - Derm Derm: Normal color, Warm and dry - Neuro Neuro: Alert and oriented X 3, No motor deficit, No sensory deficit, Normal speech Results - Vitals Vitals: Oxygen O2 Source Room air Procedures - General procedure General procedure: trigger point injection at upper rigth SI area muscles, with good improvement. Still having pain on ROM, but not nearly as guarded. No grimacing with walking. PD MEDICAL DECISION MAKING - ED course Complexity details: re-evaluated patient (no red flags to suggest need for imaging. ), considered differential (has pain and tendernes right SI area and not from midline per se. NO rash nor skin tenderness per se. He had done some work outdoors and also some cleaning up, and had used back muscles for it. No abrupt pain during the yardwork. Onset back pain later once done and after resting some. ), d/w patient Departure - Departure Disposition: 01 Home, Self Care Clinical Impression: Sacroiliitis Acute low back pain Qualifiers: Back pain laterality: right Sciatica presence: with sciatica Sciatica laterality: sciatica of right side Qualified Code(s): M54.41 - Lumbago with sciatica, right side Condition: Stable Record reviewed to determine appropriate education?: Yes Instructions: ED Sacroiliitis Follow-Up: MONIKA KRISHNAMURTHY DO [Primary Care Provider] - Prescriptions: oxyCODONE [Roxicodone] 5 mg PO Q4-6H PRN #12 tablet PRN Reason: Pain tiZANidine [Zanaflex] 4 mg PO Q8H PRN #25 tablet PRN Reason: Spasms Ondansetron Odt [Zofran] 4 mg TL Q6H PRN #12 tablet PRN Reason: Nausea / Vomiting Comments: Heat and gentle stretching for the low back and also stretching exercises for the right hip and pelvis. The stretching should be targeted towards inflammation of the sacroiliac joint not necessarily the low back itself.. You can look up references for the stretching exercises for sacroiliac strain. It would be internal and external rotation of the hip as well as bending and stretching for the low back increase mobility through the sacroiliac joint. Use tizanidine muscle relaxant to help reduce stiffness and spasms. Use Tylenol 500 mg 4 times a day regularly for the next several days to week. To that add oxycodone every 4-6 hours if needed for worse pain. You can use ondansetron if needed with it for nausea. Physical modalities such as chiropractic or massage are good as well. Follow-up with your primary care if not improving well over the next several days to week. Discharge Date/Time: 12/26/20 13:30
[2020-12-26] MEDS ORDERED: KETOROLAC 15 MG/ML VIAL IM STA (11:02)
[2020-12-26] MEDS ORDERED: BUPIVACAINE 0.5%-EPI 1:200000 PF 30 ML VIAL SUBQ ONE (11:02)
[2020-12-26] MEDS ORDERED: TRIAMCINOLONE 40 MG/ML VIAL IM STA (11:02)
[2020-12-26] MEDS ORDERED: HYDROmorphone 2 MG/ML VIAL IM STA (11:02)
[2020-12-26] MEDS ORDERED: ONDANSETRON ODT 4 MG TABLET TL STA (12:25)
[2020-12-26 12:33] VITALS: BP 133/69
== END 2020-12-26 13:30 | disposition home or self-care (01) ==
LOC: ED 09:53
DX: M46.1 Sacroiliitis, not elsewhere classified (principal); M54.41 Lumbago with sciatica, right side; E11.9 Type 2 diabetes mellitus without complications; Z79.4 Long term (current) use of insulin
CPT/HCPCS: 20552; 96372; 99283; 99284; J1170; Q0162

== ENCOUNTER 2021-01-14 11:44 | Emergency (ER) | payer MEDICARE, OTHER ==
[2021-01-14 12:07] VITALS: BP 140/72
--- NOTE | 2021-01-14 12:44 | ED Physician Documentation ---
PD HPI WOUND RECHECK - Stated complaint Stated Complaint: RT ARM INCISION SWELLING - Chief complaint Chief Complaint: Wound - Histroy obtained from History obtained from: Patient - Additional information Additional information: Had a skin cancer with unknown pathology removed from his right forearm 2 weeks ago. Starting 3 days later he developed concerns about infection. He was started on doxycycline by his slider assembler but it continues to be red with a small amount of purulent drainage. Review of Systems Constitutional: denies: Fever, Chills Throat: reports: Reviewed and negative Cardiac: reports: Reviewed and negative PD PAST MEDICAL HISTORY - Past Medical History Cardiovascular: Hypertension Respiratory: Sleep apnea Endocrine/Autoimmune: Type 2 diabetes GI: GERD, Hepatitis : Kidney stones HEENT: None Psych: Depression Musculoskeletal: Osteoarthritis, Gout, Chronic back pain Derm: Rosacea - Past Surgical History Past Surgical History: Yes General: Colonoscopy HEENT: Other Derm: Other - Present Medications Home Medications: Ambulatory Orders Medication Instructions Recorded Confirmed Allopurinol [Zyloprim] 300 mg PO ONCEDAILY 04/11/13 06/14/18 Insulin Glargine,Hum.rec.anlog 50 unit SQ BID 04/11/13 06/14/18 [Lantus] Lisinopril 10 mg PO DAILY 04/11/13 06/14/18 Metformin HCl [Glucophage] 1,000 mg PO DAILY 04/11/13 06/14/18 Simvastatin 20 mg PO DAILY 04/11/13 06/14/18 buPROPion [Wellbutrin Sr] 150 mg PO DAILY 04/11/13 06/14/18 Doxycycline Inj [Vibramycin Inj] 100 mg PO DAILY 11/19/13 06/14/18 Metoprolol Succinate 25 mg DAILY 07/15/16 06/14/18 Mometasone Furoate [Nasonex] 2 sprays NS DAILY PRN #1 spray.pump 09/18/16 06/14/18 Indomethacin PRN 06/14/18 Insulin Aspart [NovoLOG] PRN 06/14/18 Docusate Sodium 100Mg Capsule 100 mg PO DAILY #20 cap 11/17/20 [Colace 100Mg Capsule] polyethylene glycoL 3350 [Miralax] 17 gm PO DAILY PRN #1 bottle 11/17/20 Ondansetron Odt [Zofran] 4 mg TL Q6H PRN #12 tablet 08/11/21 oxyCODONE [Roxicodone] 5 mg PO Q4-6H PRN #12 tablet 12/26/20 tiZANidine [Zanaflex] 4 mg PO Q8H PRN #25 tablet 12/26/20 cephALEXin [Keflex] 500 mg PO Q6H #28 cap 01/14/21 - Allergies Allergies/Adverse Reactions: Allergies Allergy/AdvReac Type Severity Reaction Status Date / Time codeine Allergy Headache Verified 01/14/21 12:03 hydrocodone Allergy Itching Verified 01/14/21 12:03 - Social History Does the pt smoke?: No Smoking Status: Never smoker Does the pt drink ETOH?: No Does the pt have substance abuse?: No - Immunizations Immunizations are current?: No Immunizations: TDAP >10years/unknown - POLST Patient has POLST: No PD ED PE NORMAL - Vitals Vital signs reviewed: Yes - General General: Alert and oriented X 3, No acute distress - Extremities Extremities: Other (There is a 4 cm oblique incision on the dorsal right forearm with just a bit of wound dehiscence, mild cellulitis and bloody more than purulent drainage.) - Neuro Neuro: Alert and oriented X 3, Normal speech Results - Vitals Vitals: Vital Signs - 24 hr 01/14/21 12:03 Temperature 36.5 C Heart Rate 85 Respiratory 16 Rate Blood Pressure 140/72 H O2 Saturation 94 Oxygen O2 Source Room air Departure - Departure Disposition: 01 Home, Self Care Clinical Impression: Wound infection after surgery Condition: Good Record reviewed to determine appropriate education?: Yes Instructions: ED Laceration Infec Not Sutrd Prescriptions: cephALEXin [Keflex] 500 mg PO Q6H #28 cap Comments: Prescription sent electronically to [facility] in [place] for Keflex, new antibiotic. Follow-up with your slider assembler tomorrow. Return for new or worsening symptoms. We are performing a wound culture, the results should be done in 48-72 hours. If antibiotic change is necessary we will call you. Return if worse in the meantime, especially if you develop increased pain, fevers, cannot keep down the medication. Otherwise follow-up with your physician in approximately 2-3 days.
== END 2021-01-14 13:02 | disposition home or self-care (01) ==
LOC: ED 11:44
DX: T81.49XA Infection following a procedure, other surgical site, initial encounter (principal); E11.9 Type 2 diabetes mellitus without complications; Z79.4 Long term (current) use of insulin
CPT/HCPCS: 87070; 87205; 99283

== ENCOUNTER 2021-03-26 10:18 | Emergency (ER) | payer MEDICARE, OTHER ==
[2021-03-26 10:55] LABS: BILIRUBIN,URINE NEGATIVE (NEGATIVE); GLUCOSE, URINE (UA) NEGATIVE (NEGATIVE); KETONES,URINE (UA) NEGATIVE (NEGATIVE); LEUKOCYTE ESTERASE, URINE NEGATIVE (NEGATIVE); NITRITE,URINE NEGATIVE (NEGATIVE); OCCULT BLOOD,URINE NEGATIVE (NEGATIVE); PROTEIN,URINE NEGATIVE (NEGATIVE); UROBILINOGEN,URINE 0.2 (NORMAL) E.U./dL (NORMAL)
[2021-03-26 10:57] LABS: CLARITY,URINE CLEAR (CLEAR)
[2021-03-26 12:34] VITALS: BP 125/63
--- NOTE | 2021-03-26 12:42 | ED Physician Documentation ---
PD HPI BACK PAIN - Stated complaint Stated Complaint: LOW BACK PX - Chief complaint Chief Complaint: Back Pain - History obtained from History obtained from: Patient - History of Present Illness Timing - onset: Chronic Pain level max: 6 Pain level now: 5 Location: Lower, Left Quality: Pain, Spasm, Similar to prior episodes Associated symptoms: No: Fever, Weakness, Numbness, Incontinent of urine, Unable to urinate, Hematuria, Incontinent of stool Improves with: Rest, Other (sitting) Worsened by: Movement Contributing factors: No: Lifting, Twisting, Trauma, Anticoagulated, Cancer, IVDA, Out of meds - Additional information Additional information: Patient is a 70-year-old male who presents to the emergency department with low back pain. This has been chronic. He states that he has spinal stenosis bilaterally. Worse with movement, worse also at night when he is lying down. No numbness or tingling. No IV drug use. No fevers. Feels similar to his u sual back pain. Has not taken anything for this. No recent injury Review of Systems Constitutional: denies: Fever, Chills Nose: denies: Rhinorrhea / runny nose, Reviewed and negative Throat: denies: Sore throat Cardiac: denies: Chest pain / pressure Respiratory: denies: Cough GI: denies: Nausea, Vomiting, Constipation, Diarrhea, Hematemesis, Bloody / black stool : denies: Dysuria, Frequency, Hesitancy, Incontinent Skin: denies: Rash Musculoskeletal: denies: Neck pain, Back pain Neurologic: denies: Headache PD PAST MEDICAL HISTORY - Past Medical History Cardiovascular: Hypertension Respiratory: Sleep apnea Endocrine/Autoimmune: Type 2 diabetes GI: GERD, Hepatitis : Kidney stones HEENT: None Psych: Depression Musculoskeletal: Osteoarthritis, Gout, Chronic back pain Derm: Rosacea - Past Surgical History Past Surgical History: Yes General: Colonoscopy HEENT: Other Derm: Other - Present Medications Home Medications: Ambulatory Orders Medication Instructions Recorded Confirmed Allopurinol [Zyloprim] 300 mg PO ONCEDAILY 04/11/13 06/14/18 Insulin Glargine,Hum.rec.anlog 50 unit SQ BID 04/11/13 06/14/18 [Lantus] Lisinopril 10 mg PO DAILY 04/11/13 06/14/18 Metformin HCl [Glucophage] 1,000 mg PO DAILY 04/11/13 06/14/18 Simvastatin 20 mg PO DAILY 04/11/13 06/14/18 buPROPion [Wellbutrin Sr] 150 mg PO DAILY 04/11/13 06/14/18 Doxycycline Inj [Vibramycin Inj] 100 mg PO DAILY 11/19/13 06/14/18 Metoprolol Succinate 25 mg DAILY 07/15/16 06/14/18 Mometasone Furoate [Nasonex] 2 sprays NS DAILY PRN #1 spray.pump 09/18/16 06/14/18 Indomethacin PRN 06/14/18 Insulin Aspart [NovoLOG] PRN 06/14/18 Docusate Sodium 100Mg Capsule 100 mg PO DAILY #20 cap 11/17/20 [Colace 100Mg Capsule] polyethylene glycoL 3350 [Miralax] 17 gm PO DAILY PRN #1 bottle 11/17/20 Ondansetron Odt [Zofran] 4 mg TL Q6H PRN #12 tablet 12/26/20 oxyCODONE [Roxicodone] 5 mg PO Q4-6H PRN #12 tablet 12/26/20 tiZANidine [Zanaflex] 4 mg PO Q8H PRN #25 tablet 12/26/20 cephALEXin [Keflex] 500 mg PO Q6H #28 cap 01/14/21 - Allergies Allergies/Adverse Reactions: Allergies Allergy/AdvReac Type Severity Reaction Status Date / Time codeine Allergy Headache Verified 03/26/21 10:34 hydrocodone Allergy Itching Verified 03/26/21 10:34 - Social History Does the pt smoke?: No Smoking Status: Never smoker Does the pt drink ETOH?: No Does the pt have substance abuse?: No - Immunizations Immunizations are current?: No Immunizations: TDAP >10years/unknown - POLST Patient has POLST: No PD ED PE NORMAL - Vitals Vital signs reviewed: Yes - General General: Alert and oriented X 3, No acute distress - HEENT HEENT: Moist mucous membranes - Neck Neck: Supple, no meningeal sign - Cardiac Cardiac: RRR, Strong equal pulses - Respiratory Respiratory: No respiratory distress, Clear bilaterally - Abdomen Abdomen: Soft, Non tender, Non distended - Back Back: No spinal TTP, Other (Midline tenderness to palpation or percussion. No step-off or deformity.) - Derm Derm: Warm and dry - Extremities Extremities: No edema, No calf tenderness / cord - Neuro Neuro: Alert and oriented X 3, No motor deficit, No sensory deficit, Other (Normal bilateral lower extremity patellar and ankle jerk reflexes. Normal great toe extension bilaterally. no saddle anesthesia) - Psych Psych: Normal mood, Normal affect PD ED PE EXPANDED - Back Back visual: 1 - tenderness (Area of pain. No swelling. No skin changes. No rash. No bones in the area) Results - Vitals Vitals: Vital Signs - 24 hr 03/26/21 03/26/21 10:34 12:33 Temperature 36.3 C L 36.7 C Heart Rate 70 71 Respiratory 18 18 Rate Blood Pressure 144/73 H 125/63 O2 Saturation 98 100 Oxygen O2 Source Nasal cannula - Labs Labs: Laboratory Tests 03/26/21 10:46 Urine Color YELLOW Urine Clarity CLEAR Urine pH 6.0 Ur Specific [place] 1.010 Urine Protein NEGATIVE Urine Glucose (UA) NEGATIVE Urine Ketones NEGATIVE Urine Occult Blood NEGATIVE Urine Nitrite NEGATIVE Urine Bilirubin NEGATIVE Urine Urobilinogen 0.2 (NORMAL) Ur Leukocyte Esterase NEGATIVE Ur Microscopic Review NOT INDICATED Urine Culture Comments NOT INDICATED PD MEDICAL DECISION MAKING - ED course Complexity details: reviewed results, re-evaluated patient, considered differential (No cauda equina, no spinal epidural abscess, no fracture, no aortic dissection or evidence of aneursym rupture), d/w patient ED course: 70-year-old male with acute on chronic back pain. Ambulating well. Declines anything for pain here or for home. Urinalysis is clean. No neurological deficits. No indication for imaging. We will have him continue stretching and follow-up with his doctor. Abdomen is soft, nontender nondistended. Patient counseled regarding signs and symptoms for which I believe and urgent re- evaluation would be necessary. Patient with good understanding of and agreement to plan and is comfortable going home at this time This document was made in part using voice recognition software. While efforts are made to proofread this document, sound alike and grammatical errors may occur. Departure - Departure Disposition: 01 Home, Self Care Clinical Impression: Back pain Qualifiers: Back pain location: low back pain Chronicity: chronic Back pain laterality: left Sciatica presence: without sciatica Qualified Code(s): M54.50 - Low back pain, unspecified; G89.29 - Other chronic pain Condition: Good Instructions: ED Neck Back Pain General Follow-Up: MONIKA KRISHNAMURTHY DO [Primary Care Provider] - As Needed Comments: Please continue gentle stretching at home. Follow-up with your doctor for further care. Return if you worsen.
== END 2021-03-26 12:42 | disposition home or self-care (01) ==
LOC: ED 10:18
DX: M54.50 Low back pain, unspecified (principal); G89.29 Other chronic pain
CPT/HCPCS: 81001; 81003; 87086; 99283; 99284

== ENCOUNTER 2022-04-08 14:47 | Emergency (ER) | payer MEDICARE, OTHER ==
--- NOTE | 2022-04-08 15:39 | ED Physician Documentation ---
PD HPI ABD PAIN - Stated complaint Stated Complaint: WEAK,CONFUSED - Chief complaint Chief Complaint: Abd Pain - History obtained from History obtained from: Patient, Family - Additional information Additional information: 71-year-old gentleman with history of type 2 diabetes on insulin has been feeling ill since Thursday, 2 days ago. That day was the worst with a lot of nausea and he developed urinary frequency and dysuria as well as pelvic pain. Yesterday he had a "annoying" headache which is now gone and he also had lower abdominal pain which is now better. He had a fever of 101 point something per the last night. Review of Systems Constitutional: reports: Fever, Chills, Fatigue Nose: denies: Rhinorrhea / runny nose Throat: denies: Sore throat Respiratory: denies: Dyspnea, Cough GI: reports: Nausea (Gone). denies: Diarrhea PD PAST MEDICAL HISTORY - Past Medical History Cardiovascular: Hypertension Respiratory: Sleep apnea Endocrine/Autoimmune: Type 2 diabetes GI: GERD, Hepatitis : Kidney stones HEENT: None Psych: Depression Musculoskeletal: Osteoarthritis, Gout, Chronic back pain Derm: Rosacea - Past Surgical History Past Surgical History: Yes General: Colonoscopy HEENT: Other Derm: Other - Present Medications Home Medications: Ambulatory Orders Medication Instructions Recorded Confirmed Allopurinol [Zyloprim] 300 mg PO ONCEDAILY 04/11/13 06/14/18 Insulin Glargine,Hum.rec.anlog 50 unit SQ BID 04/11/13 06/14/18 [Lantus] Lisinopril 10 mg PO DAILY 04/11/13 06/14/18 Metformin HCl [Glucophage] 1,000 mg PO DAILY 04/11/13 06/14/18 Simvastatin 20 mg PO DAILY 04/11/13 06/14/18 buPROPion [Wellbutrin Sr] 150 mg PO DAILY 04/11/13 06/14/18 Doxycycline Inj [Vibramycin Inj] 100 mg PO DAILY 11/19/13 06/14/18 Metoprolol Succinate 25 mg DAILY 07/15/16 06/14/18 Mometasone Furoate [Nasonex] 2 sprays NS DAILY PRN #1 spray.pump 09/18/16 06/14/18 Indomethacin PRN 06/14/18 Insulin Aspart [NovoLOG] PRN 06/14/18 Docusate Sodium 100Mg Capsule 100 mg PO DAILY #20 cap 11/17/20 [Colace 100Mg Capsule] polyethylene glycoL 3350 [Miralax] 17 gm PO DAILY PRN #1 bottle 11/17/20 Ondansetron Odt [Zofran] 4 mg TL Q6H PRN #12 tablet 12/26/20 oxyCODONE [Roxicodone] 5 mg PO Q4-6H PRN #12 tablet 12/26/20 tiZANidine [Zanaflex] 4 mg PO Q8H PRN #25 tablet 12/26/20 cephALEXin [Keflex] 500 mg PO Q6H #28 cap 01/14/21 - Allergies Allergies/Adverse Reactions: Allergies Allergy/AdvReac Type Severity Reaction Status Date / Time codeine Allergy Headache Verified 04/08/22 15:27 hydrocodone Allergy Itching Verified 04/08/22 15:27 - Social History Does the pt smoke?: No Smoking Status: Never smoker Does the pt drink ETOH?: No Does the pt have substance abuse?: No - Immunizations Immunizations are current?: No Immunizations: TDAP >10years/unknown - POLST Patient has POLST: No PD ED PE NORMAL - Vitals Vital signs reviewed: Yes - General General: Alert and oriented X 3 (He states the date is April 01, but otherwise is fully oriented, remembers his address and what he had for breakfast.), No acute distress, Well developed/nourished, Other - HEENT HEENT: PERRL, EOMI - Neck Neck: Supple, no meningeal sign, No bony TTP - Cardiac Cardiac: RRR, No murmur - Respiratory Respiratory: No respiratory distress, Clear bilaterally - Abdomen Abdomen: Normal bowel sounds, Soft, Other (Mild suprapubic tenderness without surgical signs) - Neuro Neuro: Alert and oriented X 3, 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 2-12 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 Eye Opening: Spontaneous Motor: Obeys Commands Verbal: Oriented GCS Score: 15 - Psych Psych: Normal mood, Normal affect Results - Vitals Vitals: Vital Signs - 24 hr 04/08/22 04/08/22 04/08/22 15:22 15:27 17:27 Temperature 36.1 C L 36.5 C 36.5 C Heart Rate 72 72 72 Respiratory 16 16 16 Rate Blood Pressure 154/86 H 154/86 H 140/80 H O2 Saturation 99 99 100 04/08/22 19:15 Temperature Heart Rate 68 Respiratory 20 Rate Blood Pressure 153/80 H O2 Saturation 98 Oxygen O2 Source Room air - EKG (time done) 1622 Rate: Rate (enter#) (78) Rhythm: Atrial flutter [place]: Normal Intervals: RBBB QRS: Normal Ischemia: Normal ST segments - Labs Labs: Laboratory Tests 04/08/22 04/08/22 04/08/22 15:37 15:37 17:20 WBC 4.9 RBC 3.93 L Hgb 12.2 L Hct 38.1 L MCV 96.9 H MCH 31.0 MCHC 32.0 RDW 15.3 H Plt Count 128 L MPV 10.9 Neut # (Auto) 2.2 Lymph # (Auto) 1.9 [place] # (Auto) 0.5 Eos # (Auto) 0.2 Baso # (Auto) 0.0 Absolute Nucleated RBC 0.00 Nucleated RBC % 0.0 Sodium 134 L Potassium 4.5 Chloride 99 L Carbon Dioxide 24 Anion Gap 11.0 BUN 25 H Creatinine 0.9 Estimated GFR (MDRD) 83 L Glucose 104 H Calcium 9.3 Magnesium 1.8 Total Bilirubin 0.3 AST 36 ALT 27 Alkaline Phosphatase 62 Total Protein 7.4 Albumin 3.8 Globulin 3.6 Albumin/Globulin Ratio 1.1 Urine Color YELLOW Urine Clarity CLEAR Urine pH 6.0 Ur Specific [place] <=1.005 Urine Protein NEGATIVE Urine Glucose (UA) NEGATIVE Urine Ketones NEGATIVE Urine Occult Blood NEGATIVE Urine Nitrite NEGATIVE Urine Bilirubin NEGATIVE Urine Urobilinogen 0.2 (NORMAL) Ur Leukocyte Esterase NEGATIVE Ur Microscopic Review NOT INDICATED Urine Culture Comments NOT INDICATED Nasal Adenovirus (PCR) Nasal B. parapertussis DNA (PCR) Nasal Coronavir 229E PCR Nasal Coronavir HKU1 PCR Nasal Coronavir NL63 PCR Nasal Coronavir OC43 PCR Nasal Enterovir/Rhinovir PCR Nasal Influenza B PCR Nasal Influenza A PCR Nasal Parainfluen 1 PCR Nasal Parainfluen 2 PCR Nasal Parainfluen 3 PCR Nasal Parainfluen 4 PCR Nasal RSV (PCR) Nasal B.pertussis DNA PCR Nasal C.pneumoniae (PCR) Marc Human Metapneumo PCR Nasal M.pneumoniae (PCR) Nasal SARS-CoV-2 (PCR) 04/08/22 17:50 WBC RBC Hgb Hct MCV MCH MCHC RDW Plt Count MPV Neut # (Auto) Lymph # (Auto) [place] # (Auto) Eos # (Auto) Baso # (Auto) Absolute Nucleated RBC Nucleated RBC % Sodium Potassium Chloride Carbon Dioxide Anion Gap BUN Creatinine Estimated GFR (MDRD) Glucose Calcium Magnesium Total Bilirubin AST ALT Alkaline Phosphatase Total Protein Albumin Globulin Albumin/Globulin Ratio Urine Color Urine Clarity Urine pH Ur Specific [place] Urine Protein Urine Glucose (UA) Urine Ketones Urine Occult Blood Urine Nitrite Urine Bilirubin Urine Urobilinogen Ur Leukocyte Esterase Ur Microscopic Review Urine Culture Comments Nasal Adenovirus (PCR) NOT DETECTED Nasal B. parapertussis DNA (PCR) NOT DETECTED Nasal Coronavir 229E PCR NOT DETECTED Nasal Coronavir HKU1 PCR NOT DETECTED Nasal Coronavir NL63 PCR NOT DETECTED Nasal Coronavir OC43 PCR NOT DETECTED Nasal Enterovir/Rhinovir PCR NOT DETECTED Nasal Influenza B PCR NOT DETECTED Nasal Influenza A PCR NOT DETECTED Nasal Parainfluen 1 PCR NOT DETECTED Nasal Parainfluen 2 PCR NOT DETECTED Nasal Parainfluen 3 PCR NOT DETECTED Nasal Parainfluen 4 PCR NOT DETECTED Nasal RSV (PCR) NOT DETECTED Nasal B.pertussis DNA PCR NOT DETECTED Nasal C.pneumoniae (PCR) NOT DETECTED Marc Human Metapneumo PCR NOT DETECTED Nasal M.pneumoniae (PCR) NOT DETECTED Nasal SARS-CoV-2 (PCR) NOT DETECTED PD MEDICAL DECISION MAKING - ED course ED course: 71-year-old gentleman presents with generalized weakness and confusion associated with vomiting. Most of those symptoms are better today, and it was associated with fever. He is not confused here. Work-up demonstrates mild anemia, elevated BUN but otherwise relatively unremarkable chemistries, normal urinalysis, negative bio fire panel. This was followed by CT of the head, and abdomen as well as a chest x-ray all which were noncontributory. A bladder scan done after he urinated yielded only 147 mL. He is feeling completely better at this point and there is no clear diagnosis save perhaps of a viral gastroenteritis, and he was given close return precautions. Departure - Departure Disposition: 01 Home, Self Care Clinical Impression: Transient confusion Abdominal pain Qualifiers: Abdominal location: lower abdomen, unspecified Qualified Code(s): R10.30 - Lower abdominal pain, unspecified Vomiting Qualifiers: Vomiting type: unspecified Nausea presence: with nausea Qualified Code(s): R11.2 - Nausea with vomiting, unspecified Condition: Good Record reviewed to determine appropriate education?: Yes Instructions: ED Nausea Vomiting Comments: Return immediately if you develop any recurrent symptoms, follow-up with your primary care physician, next available appointment.
[2022-04-08 16:00] LABS: BASOPHILS % (AUTO) 0.4 %; EOSINOPHILS # (AUTO) 0.2 10^3/uL (0.0-0.7); EOSINOPHILS % (AUTO) 3.3 %; HCT - HEMATOCRIT 38.1 % (42.0-52.0); HGB - HEMOGLOBIN 12.2 g/dL (14.0-18.0); LYMPHOCYTES # (AUTO) 1.9 10^3/uL (1.5-3.5); MEAN CORPUSCULAR VOLUME 96.9 fL (80.0-94.0); MEAN PLATELET VOLUME 10.9 fL (7.4-11.4); MONOCYTES # (AUTO) 0.5 10^3/uL (0.0-1.0); MONOCYTES % (AUTO) 10.1 %; NEUTROPHILS # (AUTO) 2.2 10^3/uL (1.5-6.6); PLT - PLATELET COUNT 128 10^3/uL (130-450); RED BLOOD COUNT 3.93 10^6/uL (4.70-6.10); RED CELL DISTRIBUTION WIDTH 15.3 % (12.0-15.0); WHITE BLOOD COUNT 4.9 x10^3/uL (4.8-10.8)
[2022-04-08 16:11] LABS: ALBUMIN 3.8 g/dL (3.2-5.5); ALBUMIN/GLOBULIN RATIO 1.1 (1.0-2.2); BILIRUBIN,TOTAL 0.3 mg/dL (0.2-1.0); CALCIUM 9.3 mg/dL (8.5-10.3); CREATININE 0.9 mg/dL (0.6-1.2); MAGNESIUM 1.8 mg/dL (1.7-2.8); POTASSIUM 4.5 mmol/L (3.5-5.0); TOTAL PROTEIN 7.4 g/dL (6.7-8.2)
[2022-04-08 17:35] LABS: BILIRUBIN,URINE NEGATIVE (NEGATIVE); CLARITY,URINE CLEAR (CLEAR); GLUCOSE, URINE (UA) NEGATIVE (NEGATIVE); KETONES,URINE (UA) NEGATIVE (NEGATIVE); LEUKOCYTE ESTERASE, URINE NEGATIVE (NEGATIVE); NITRITE,URINE NEGATIVE (NEGATIVE); OCCULT BLOOD,URINE NEGATIVE (NEGATIVE); PROTEIN,URINE NEGATIVE (NEGATIVE); UROBILINOGEN,URINE 0.2 (NORMAL) E.U./dL (NORMAL)
[2022-04-08] MEDS ORDERED: iohexoL-300 100 ML VIAL ONE (17:50)
[2022-04-08] MEDS ORDERED: SODIUM CHLORIDE 0.9% 1,000 ML IV STA (17:57)
[2022-04-08] MEDS ORDERED: iohexoL-300 100 ML VIAL IVP ONE (18:36)
[2022-04-08 18:44] LABS: B. PARAPERTUSSIS- RESP PCR PAN NOT DETECTED; B. PERTUSSIS- RESP PCR PANEL NOT DETECTED; C. PNEUMONIAE- RESP PCR PANEL NOT DETECTED; CORONAVIRUS 229E-RESP PCR NOT DETECTED; CORONAVIRUS HKU1-RESP PCR NOT DETECTED; CORONAVIRUS NL63-RESP PCR NOT DETECTED; CORONAVIRUS OC43-RESP PCR NOT DETECTED; HUMAN METAPNEUMOVIRUS NOT DETECTED; INFLUENZA A- RESP PCR PANEL NOT DETECTED; INFLUENZA B - RESP PCR PANEL NOT DETECTED; M. PNEUMONIAE- RESP PCR PANEL NOT DETECTED; PARAINFLUENZA VIRUS 1 NOT DETECTED; PARAINFLUENZA VIRUS 2 NOT DETECTED; PARAINFLUENZA VIRUS 3 NOT DETECTED; PARAINFLUENZA VIRUS 4 NOT DETECTED; RHINOVIRUS/ENTEROVIRUS NOT DETECTED; RSV- RESP PCR PANEL NOT DETECTED; SARS-CoV-2 -RESP PCR PANEL NOT DETECTED
--- NOTE | 2022-04-08 18:55 | CT Report ---
PROCEDURE: HEAD WO INDICATIONS: headache TECHNIQUE: Noncontrast 4.5 mm thick angled axial sections acquired from the foramen magnum to the vertex. For r adiation dose reduction, the following was used: automated exposure control, adjustment of mA and/or kV according to patient size. COMPARISON: None. FINDINGS: Image quality: Excellent. CSF spaces: Basal cisterns are patent. No extra-axial fluid collections. Ventricles are normal in size and shape. Brain: No midline shift. No intracranial masses or hemorrhage. Chun-white matter interface is norm al. Skull and face: Calvarium and visualized facial bones are intact, without suspicious lesions. Sinuses: Visualized sinuses and mastoids are clear. IMPRESSION: No intracranial hemorrhage or other acute intracranial abnormality. Reviewed by: Alex Finney MD on 04/08/2022 6:54 PM PST Approved by: Alex Finney MD on 04/08/2022 6:54 PM PST Station ID: [id number]
--- NOTE | 2022-04-08 19:08 | CT Report ---
PROCEDURE: ABDOMEN/PELVIS W INDICATIONS: low abd pain CONTRAST: 100ml Omnipaque 300 TECHNIQUE: After the administration of intravenous contrast, 5 mm thick sections acquired from the diaphragms to the symphysis. 5 mm thick coronal and sagittal reformats were acquired. For radiation dose reducti on, the following was used: automated exposure control, adjustment of mA and/or kV according to anjel ent size. COMPARISON: None. FINDINGS: Image quality: Excellent. FINDINGS: Visualized lung bases: No pleural effusion. Liver and biliary tree: Unchanged 3.2 cm hypodensity at the right dome of the liver, non-specific, po ssible cyst or hemangioma. No biliary ductal dilation demonstrated. Gallbladder: No radiopaque cholelithiasis. Spleen: Unremarkable. Pancreas: Unremarkable. Adrenal glands: Unremarkable. Kidneys and ureters: No hydronephrosis. Renal cortical cysts and hypodensities too small to character ize but statistically likely represent benign cysts are present as before. Gastrointestinal tract: No bowel obstruction. The appendix is visualized without evidence of acute ap pendicitis. Peritoneal cavity: No free air or free fluid. Bladder: Unremarkable. Pelvic organs: Unremarkable CT appearance. Vasculature: No abdominal aortic aneurysm. Abdominal wall: Tiny fat-containing periumbilical hernia. Musculoskeletal: Degenerative change of the spine. IMPRESSION: No acute appearing abnormality identified within the abdomen or pelvis. Reviewed by: Alex Finney MD on 04/08/2022 7:07 PM PST Approved by: Alex Finney MD on 04/08/2022 7:07 PM PST Station ID: [id number]
--- NOTE | 2022-04-08 19:10 | XRAY Report ---
PROCEDURE: Chest 1 View X-Ray INDICATIONS: weakness TECHNIQUE: One view of the chest was acquired. COMPARISON: Chest radiograph 11/19/2013 FINDINGS: Surgical changes and devices: None. Lungs and pleura: No pleural effusions or pneumothorax. Lungs are clear. Mediastinum: Cardiac silhouette is at the upper limits of normal in size. Mediastinal and hilar cont ours are similar to before. Bones and chest wall: No suspicious bony lesions. Overlying soft tissues appear unremarkable. IMPRESSION: No acute cardiopulmonary abnormality. Reviewed by: Alex Finney MD on 04/08/2022 7:09 PM [facility] Approved by: Alex Finney MD on 04/08/2022 7:09 PM [facility] Station ID: [id number]
[2022-04-08 19:17] VITALS: BP 153/80
== END 2022-04-08 19:53 | disposition home or self-care (01) ==
LOC: ED 14:47
DX: R41.0 Disorientation, unspecified (principal); R53.1 Weakness; R11.2 Nausea with vomiting, unspecified; D64.9 Anemia, unspecified; R10.30 Lower abdominal pain, unspecified; E11.9 Type 2 diabetes mellitus without complications; K21.9 Gastro-esophageal reflux disease without esophagitis; R30.0 Dysuria; Z20.822 Contact with and (suspected) exposure to COVID-19
CPT/HCPCS: 36415; 51798; 70450; 71045; 74177; 80053; 81003; 83735; 85025; 87633; 93005; 96360; 99283; 99284; Q9967; 81001; 87086

== ENCOUNTER 2022-08-14 11:23 | Outpatient (CLI) | payer MEDICARE, OTHER ==
--- NOTE | 2022-08-14 11:45 | SLEEP CARE CONSULTATION ---
Information from patient questionnaire entered by Jonna Layton. I have reviewed and concur with the information entered by Jonna Layton. This document represents the service I personally performed and the decisions made by me, Cecily Goodwin ARNP. History of Present Illness Service Date and Time: 08/14/2022 1123 Previous diagnosis: Severe, Obstructive Sleep Apnea-Hypopnea Syndrome AHI: 48.2 (in 2015) Reason for follow up: annual (LAST SEEN 11/2020) Equipment type: BiPAP (ResMed Aircurve 10 VAuto, s/u 04/2021; SD CARD NEEDED FOR DOWNLOAD AND PRESSURE CHANGES) Equipment obtained from: Other ([facility]; getting supplies as needed) Mask style: Nasal pillows (P10) Mask brand: Resmed Backup mask available: Yes (old mask) Last cushion change: couple days ago Prior sleep studies: Yes Year and Where[facility] 2015, 2012, and [facility] Type of [facility] Study: Polysomnography HPI additional information: DOTTIE VALENTIN was diagnosed to have severe, AHI 48.2, obstructive sleep apnea- hypopnea syndrome and returned today for BIPAP therapy annual follow-up. Sleep Study - Results Type of Sleep Study: Polysomnography Prior sleep studies: Yes Year and Where: 2015, 2012, and 2006 [facility] Compliance Data - Data Reviewed with Patient Average duration of nightly device use: 8 hours 54 minutes Compliance rate %: 99 (179/180 days used) Current pressure setting (cmH2O): 15/8 Average residual AHI: 1.2 Central apnea: 0.8 Obstructive apnea: 0.3 Subjective Missed days of use due to: reports: other (power outage) Patient concerns: reports: dry mouth, nose, throat (occasional). denies: aerophagia, mask discomfort, air blowing in eyes, mask leak noise, condensation in mask/hose, nasal congestion, epistaxis Observed to snore while using device: No Current pressure setting perceived as: comfortable On therapy, patient: reports: sleeping better, awakening more refreshed, being more awake and alert during the day, more rested overall. denies: drowsiness while driving Initial [place] Sleepiness Scale score: 6 (in 2005) Current [place] Sleepiness Scale score: 0 (08/14/22) Allergies and Home Medications Known drug allergies: Yes (as listed) Drug allergies reviewed: Yes Home medication list reviewed: Yes (no changes) Allergy and home medication list: Allergies codeine Allergy (Verified 08/13/22 15:46) Headache hydrocodone Allergy (Verified 08/13/22 15:46) Itching Review of Systems Review of systems same as previous: Yes (no changes) Physical Exam Vital signs obtained and entered by: JONNA Madison MA Blood Pressure: 130/70 (LEFT ARM) Cuff size: regular Heart Rate: 85 O2 Saturation: 97 Height: 5 ft 10 in Weight: 232 lb 9.6 oz Body Mass Index: 33.3 BMI Classification: Obese Impression and Plan 1. Obstructive Sleep Apnea-Hypopnea Syndrome, severe, with good treatment compliance and good apnea control. On BIPAP therapy, the patient has better sleep quality and is more rested overall. Patient has significant improvement of their sleep apnea and is satisfied with current CPAP therapy. Patient does get up mouth dryness but states movement of water helps. He states he knows his mouth comes open and he has tried a chinstrap in the past but it was not comfortable. I will follow-up with him in a year. Patient's apnea severity and rationale for treatment to reduce apnea, improve sleep quality and reduce cardiovascular and cerebrovascular events was reviewed. I also reviewed the benefit of consistent device use of BIPAP for hypertension. 2. Obesity, unspecified. Currently patients BMI is 33.3. Obesity increases the risk of apnea, BIPAP pressure requirements and overall health risks especially cardiovascular and diabetes. Thus patient is advised to lose weight. * Continue BIPAP pressure at 15/8 cmH2O * Update supplies * Notify me if snoring with mask or feeling that the pressure is too much or too little * Attempt to lose weight * Call this office if any problems using BIPAP * Return for follow up in 1 year, or sooner if concerns arise Counseling Topics: Spare mask, Weight loss health impact Visit Type: In Office Time Spent with Patient (minutes): 12 Provider Statement: I spent 100% of the Face to Face Visit with the patient with greater than 50% spent counseling the patient and coordination of care.
[2022-08-14 11:46] VITALS: BP 130/70
== END 2022-08-14 11:24 | disposition home or self-care (01) ==
LOC: SC 11:23
PROVIDERS: ATTEND Nurse Practitioner Family
DX: G47.33 Obstructive sleep apnea (adult) (pediatric) (principal); E66.9 Obesity, unspecified; Z68.33 Body mass index [BMI] 33.0-33.9, adult
CPT/HCPCS: 99212; G0463

== ENCOUNTER 2023-08-10 04:25 | Emergency (ER) | payer MEDICARE, OTHER ==
[2023-08-10 04:54] VITALS: BP 125/62; O2SAT 100
--- NOTE | 2023-08-10 04:57 | ED Physician Documentation ---
History of Present Illness - Stated complaint Stated Complaint: L TOE PX - Chief complaint Chief Complaint: Ext Problem - History obtained from History obtained from: Patient - Additonal information Additional information: Patient is a 72-year-old male with a history of diabetes presenting for evaluation of redness and swelling to the left great toe. Patient states started with an ingrown toenail. His to trim the nail back. He reports this has been present for the past 3 days. He reports this morning it was becoming a little uncomfortable prompting him to come to the ER for evaluation. He has never seen a chief design engineer or had regular feet checks. Denies fever. Denies trauma. Review of Systems Constitutional: denies: Fever Cardiac: denies: Chest pain / pressure Respiratory: denies: Dyspnea GI: denies: Abdominal Pain Musculoskeletal: reports: Extremity pain PD PAST MEDICAL HISTORY - Past Medical History Cardiovascular: Hypertension Respiratory: Sleep apnea Endocrine/Autoimmune: Type 2 diabetes GI: GERD, Hepatitis : Kidney stones HEENT: None Psych: Depression Musculoskeletal: Osteoarthritis, Gout, Chronic back pain Derm: Rosacea - Past Surgical History Past Surgical History: Yes General: Colonoscopy HEENT: Other Derm: Other - Present Medications Home Medications: Ambulatory Orders Medication Instructions Recorded Confirmed Allopurinol [Zyloprim] 300 mg PO ONCEDAILY 04/11/13 08/14/22 Insulin Glargine,Hum.rec.anlog 50 unit SQ BID 04/11/13 08/14/22 [Lantus] Lisinopril 10 mg PO DAILY 04/11/13 08/14/22 Metformin HCl [Glucophage] 1,000 mg PO DAILY 04/11/13 08/14/22 Simvastatin 20 mg PO DAILY 04/11/13 08/14/22 buPROPion [Wellbutrin Sr] 150 mg PO DAILY 04/11/13 08/14/22 Doxycycline Inj [Vibramycin Inj] 100 mg PO DAILY 11/19/13 08/14/22 Metoprolol Succinate 25 mg DAILY 07/15/16 08/14/22 Mometasone Furoate [Nasonex] 2 sprays NS DAILY PRN #1 spray.pump 09/18/16 08/14/22 Indomethacin See Rx Instructions .ROUTE 06/14/18 08/14/22 .COMPLEX PRN Insulin Aspart [NovoLOG] See Rx Instructions .ROUTE 06/14/18 08/14/22 .COMPLEX PRN Docusate Sodium 100Mg Capsule 100 mg PO DAILY #20 cap 11/17/20 08/14/22 [Colace 100Mg Capsule] polyethylene glycoL 3350(BULK) 17 gm PO DAILY PRN #1 bottle 11/17/20 08/14/22 [Miralax] Ondansetron Odt [Zofran] 4 mg TL Q6H PRN #12 tablet 12/26/20 08/14/22 oxyCODONE [Roxicodone] 5 mg PO Q4-6H PRN #12 tablet 12/26/20 08/14/22 tiZANidine [Zanaflex] 4 mg PO Q8H PRN #25 tablet 12/26/20 08/14/22 cephALEXin [Keflex] 500 mg PO Q6H #28 cap 08/10/23 - Allergies Allergies/Adverse Reactions: Allergies Allergy/AdvReac Type Severity Reaction Status Date / Time codeine Allergy Headache Verified 08/14/22 11:25 hydrocodone Allergy Itching Verified 08/14/22 11:25 - Social History Does the pt smoke?: No Smoking Status: Never smoker Does the pt drink ETOH?: No Does the pt have substance abuse?: No - Immunizations Immunizations are current?: No Immunizations: TDAP >10years/unknown - POLST Patient has POLST: No PD ED PE NORMAL - General General: Alert and oriented X 3, No acute distress, Well developed/nourished - HEENT HEENT: Atraumatic - Cardiac Cardiac: Strong equal pulses - Respiratory Respiratory: No respiratory distress - Extremities Extremities: Other (L great toe: medial nail has been trimmed back; redness/tenderness to medial/proximal nail fold, no fluctuance/abscess) Results - Vitals Vitals: Vital Signs - 24 hr 08/10/23 04:36 Temperature 36.3 C L Heart Rate 79 Respiratory 20 Rate Blood Pressure 125/62 O2 Saturation 100 Oxygen O2 Source Room air PD Medical Decision Making - ED course ED course: Patient presenting for evaluation of concerns for infection to left great toe. Appears to have had an ingrown toenail that is trimmed back. Has associated paronychia with no abscess. Will treat with antibiotics as well as soaks in warm soapy water. Patient given information for chief design engineer as he is a diabetic and would benefit from regular Diabetic foot exams. Patient counseled on concerning symptoms to return for. Departure - Departure Disposition: 01 Home, Self Care Clinical Impression: Ingrown toenail of left foot with infection Condition: Stable Instructions: ED Toenail Ingrown Infec Abx Onl Follow-Up: Magdalene Ramirez DPM [Provider Admit Priv/Credential] - Prescriptions: cephALEXin [Keflex] 500 mg PO Q6H #28 cap Comments: Your antibiotic prescription was sent to [facility] in [place]. I would also recommend Soaking your foot in warm soapy water for 15 minutes, 3-4 times a day. I have also included information for the local chief design engineer I would recommend making a follow-up appointment. You should have regular checks of your feet due to your diabetes. Return to the ER with any worsening symptoms. Forms: PCP List Discharge Date/Time: 08/10/23 05:08
== END 2023-08-10 05:08 | disposition home or self-care (01) ==
LOC: ED 04:25
DX: L60.0 Ingrowing nail (principal); L03.032 Cellulitis of left toe; I10 Essential (primary) hypertension; E11.9 Type 2 diabetes mellitus without complications; Z79.4 Long term (current) use of insulin; Z79.84 Long term (current) use of oral hypoglycemic drugs
CPT/HCPCS: 99282; 99283

== ENCOUNTER 2023-08-19 11:07 | Outpatient (CLI) | payer MEDICARE, OTHER ==
--- NOTE | 2023-08-19 11:22 | Sleep Patient Instructions ---
Sleep Center Visit Summary - Patient Visit Information Reason for Visit: Annual follow-up - Patient Instructions Additional Instructions: You will continue with BiPAP therapy with pressure set at 15/8 cmH2O. A supply prescription will be updated with your DME. We encourage you to continue to try to lose weight. Please follow up with the sleep care office in 1 year. - Clinic Information Contact: [facility] [address] [place] [address] [email or web address] T: [phone]
--- NOTE | 2023-08-19 11:25 | SLEEP CARE CONSULTATION ---
Information from patient questionnaire entered by Jonna Layton. I have reviewed and concur with the information entered by Jonna Layton. This document represents the service I personally performed and the decisions made by me, Cecily Goodwin ARNP. History of Present Illness Service Date and Time: 08/19/2023 1107 Previous diagnosis: Severe, Obstructive Sleep Apnea-Hypopnea Syndrome AHI: 48.2 (in 2016) Reason for follow up: annual (LAST SEEN07/2022) Equipment type: BiPAP (ResMed Aircurve 10 VAuto, s/u 04/2021;) Equipment obtained from: Other ([facility]; getting supplies as needed) Mask style: Nasal pillows (P10) Mask brand: Resmed Backup mask available: Yes Last cushion change: last night Prior sleep studies: Yes Year and Where: 2015, 2012, and 2006 - [facility] Type of Sleep Study: Polysomnography HPI additional information: DOTTIE VALENTIN was diagnosed to have severe, AHI 48.2, obstructive sleep apnea- hypopnea syndrome and returned today for BIPAP therapy annual follow-up. Sleep Study - Results Type of Sleep Study: Polysomnography Prior sleep studies: Yes Year and Where: 2015, 2012, and 2006 - [facility] CPAP Compliance Data - Data Reviewed with Patient Average duration of nightly device use: 9 HRS 24 MINS Compliance rate %: 99 (08/17/22-08/16/23; 365/365 days used) Current pressure setting (cmH2O): 15/8 Average residual AHI: 1.8 Central apnea: 1.2 Obstructive apnea: 0.5 Average large leak: 2.7 L/min Subjective Patient concerns: reports: dry mouth, nose, throat (occasional). denies: aerophagia, mask discomfort, air blowing in eyes, mask leak noise, condensation in mask/hose, nasal congestion, epistaxis Observed to snore while using device: No Current pressure setting perceived as: comfortable On therapy, patient: reports: sleeping better, awakening more refreshed, being more awake and alert during the day, more rested overall. denies: drowsiness while driving Initial Fel[place] Sleepiness Scale score: 6 (in 2005) Current Fel[place] Sleepiness Scale score: 0 (08/19/23) Allergies and Home Medications Known drug allergies: Yes (as listed) Drug allergies reviewed: Yes Home medication list reviewed: Yes (no changes) Allergy and home medication list: Allergies codeine Allergy (Verified 08/17/23 09:58) Headache hydrocodone Allergy (Verified 08/17/23 09:58) Itching Review of Systems Review of systems same as previous: No (RIGHT SHOULDER REPLACEMENT, Feb 19) Physical Exam Vital signs obtained and entered by: JONNA Madison MA Blood Pressure: 137/74 (LEFT ARM) Cuff size: regular Heart Rate: 71 O2 Saturation: 99 Height: 5 ft 10 in Weight: 237 lb 9.6 oz Weight change since last visit: 5 lb gain Body Mass Index: 34.0 BMI Classification: Obese Impression and Plan 1. Obstructive Sleep Apnea-Hypopnea Syndrome, severe, with good treatment compliance and good apnea control. On BiPAP therapy, the patient has better sleep quality and is more rested overall. Patient has significant improvement of their sleep apnea and is satisfied with current CPAP therapy. He says he gets occasional dry but otherwise has no complaints with using the BiPAP. Patient's apnea severity and rationale for treatment to reduce apnea, improve sleep quality and reduce cardiovascular and cerebrovascular events was reviewed. I also reviewed the benefit of consistent device use of BiPAP for hypertension. 2. Obesity, unspecified. Currently patients BMI is 34. He has gained weight. Obesity increases the risk of apnea, BiPAP pressure requirements and overall health risks especially cardiovascular and diabetes. Thus patient is advised to lose weight. * Continue BiPAP pressure at 15/8 cmH2O * Update supply prescription * Notify me if snoring with mask or feeling that the pressure is too much or too little * Attempt to lose weight * Call this office if any problems using CPAP * Return for follow up in 12 months, or sooner if concerns arise Counseling Topics: Spare mask, Weight loss health impact Prescriptions: Device supplies Follow up with Sleep Care in: 1 year Visit Type: In Office Time Spent with Patient (minutes): 11 Provider Statement: I spent 100% of the Face to Face Visit with the patient with greater than 50% spent counseling the patient and coordination of care.
[2023-08-19 11:30] VITALS: BP 137/74; O2SAT 99
== END 2023-08-19 11:08 | disposition home or self-care (01) ==
LOC: SC 11:07
PROVIDERS: ATTEND Nurse Practitioner Family
DX: G47.33 Obstructive sleep apnea (adult) (pediatric) (principal); E66.9 Obesity, unspecified; Z68.34 Body mass index [BMI] 34.0-34.9, adult
CPT/HCPCS: 99212; G0463